=== PATIENT | female | born 1945 | race Caucasian/White ===

== ENCOUNTER 2017-12-26 09:33 | Emergency (ER) ==
[2017-12-26 10:01] VITALS: BP 136/84; TEMP 99.8; BMI 42.2
[2017-12-26] MEDS ORDERED: TORADOL IM STA (10:13)
--- NOTE | 2017-12-26 10:15 | ED.PDOC ---
General ED Provider: Dr. VIKKI PAGAN Chief Complaint: Neck Pain Non-Injury Stated Complaint: Came the neck pain patient was driving and looking back, felf cath in the neck, ever since the pain to turn the neck and lift the head. Time Seen by Physician: 10:13 Mode of Arrival: Walk-In Information Source: Patient Nursing and Triage Documentation Reviewed and Agree: Yes Does patient meet sepsis criteria?: No If yes, has appropriate treatment been initiated?: No System Inflammatory Response Syndrome: Not Applicable Sepsis Protocol: For patient's 13 years and over: Temp is 96.8 and below OR 101 and greater Pulse >90 BPM Resp >20/minute Acutely Altered Mental Status Are patient's symptoms suggestive of a new infection, such as: -Pneumonia -Skin, Soft Tissue -Endocarditis -UTI -Bone, Joint Infection -Implantable Device -Acute Abdominal Infection -Wound Infection -Meningitis -Blood Stream Catheter Infection -Unknown Musculoskeletal Complaint Exam - Neck Pain Complaint/Exam Mechanism of Injury: Reports: No known trauma Symptoms Are: Still present Timing: Constant Episodes Lasting: Hours Initial Severity: Severe Current Severity: Severe Location: Reports: Discrete Character: Reports: Aching Aggravating: Reports: Movement Alleviating: Reports: None Associated Signs and Symptoms: Denies: Swelling, Redness, Bruising, Fever, Nuchal rigidity, Weakness, Headache, Paresthesia Meningitis Risk Factors: Reports: None Cervical Spine Injury Risk Factors: Reports: None Related Surgical History: Reports: None Carotid Bruit Present: No Pain on Passive Flexion: No Positive Kernig's Sign: No ROM Limited In: Present: Flexion, Extension, Right, Left, Side bending, Rotation Tenderness: Present: Paraspinal Focal Weakness: Present: None Focal Sensory Loss: Reports: None Differential Diagnoses: Sprain Review of Systems - Review Of Systems Constitutional: Reports: No symptoms Eyes: Reports: No symptoms Ears, Nose, Mouth, Throat: Reports: No symptoms Respiratory: Reports: No symptoms Cardiac: Reports: No symptoms GI: Reports: No symptoms : Reports: No symptoms Musculoskeletal: Reports: Back pain, Joint pain, Neck pain Skin: Reports: No symptoms Neurological: Reports: No symptoms Endocrine: Reports: No symptoms Hematologic/Lymphatic: Reports: No symptoms All Other Systems: Reviewed and Negative Past Medical History - Past Medical History Previously Healthy: Yes Endocrine: Reports: Dyslipidemia Cardiovascular: Reports: CAD, Hypertension Respiratory: Reports: None Hematological: Reports: None Gastrointestinal: Reports: None Genitourinary: Reports: None Neuro/Psych: Reports: None Musculoskeletal: Reports: None Cancer: Reports: None Last Menstrual Period: unknown - Surgical History General Surgical History: Reports: Hysterectomy, Orthopedic - Family History Family History: Reports: None - Social History Smoking Status: Never smoker Hx Substance Use: No Alcohol Screening: None Physical Exam - Physical Exam Appearance: Well-appearing, No pain distress, Well-nourished Eyes: CÉSAR, EOMI, Conjunctiva clear ENT: Ears normal, Nose normal, Oropharynx normal Respiratory: Airway patent, Breath sounds clear, Breath sounds equal, Respirations nonlabored Cardiovascular: RRR, Pulses normal, No rub, No murmur GI/: Soft, Nontender, No masses, Bowel sounds normal, No Organomegaly Musculoskeletal: Normal strength, ROM intact, No edema, No calf tenderness Skin: Warm, Dry, Normal color Neurological: Sensation intact, Motor intact, Reflexes intact, Cranial nerves intact, Alert, Oriented Psychiatric: Affect appropriate, Mood appropriate Interpretation - Radiology Interpretation Radiology Interpretation By: Radiologist Radiology Results: Negative Exam Interpreted: CT Scan Re-Evaluation - Re-Evaluation Time of Re-Evaluation: 10:45 Status: Improved Critical Care Note - Critical Care Note Total Time (mins): 30 Course - Course Orders, Labs, Meds: Orders Category Date Time Status URIC ACID Stat LAB 12/26/17 10:25 Received Dexamethasone 4 mg/ml Inj [Decadron 4 mg/ml Sdv] MEDS 12/26/17 10:19 Discontinued 4 mg IM ONCE STA Ketorolac Tromethamine [Toradol] MEDS 12/26/17 10:13 Discontinued 60 mg IM ONCE STA CT CERVICAL SPINE W/O CONTRAST Stat RADS 12/26/17 10:13 Completed WRIST, RIGHT 3 VIEWS Stat RADS 12/26/17 10:19 Completed Medications Discontinued Medications Generic Name Dose Route Start Last Admin Trade Name Freq PRN Reason Stop Dose Admin Dexamethasone Sodium Phosphate 4 mg 12/26/17 10:19 12/26/17 10:36 Decadron 4 Mg/Ml Sdv IM 12/26/17 10:20 4 mg ONCE STA Administration Ketorolac Tromethamine 60 mg 12/26/17 10:13 12/26/17 10:34 Toradol IM 12/26/17 10:14 60 mg ONCE STA Administration Vital Signs: Temp Pulse Resp BP Pulse Ox 12/26/17 09:34 99.8 F H 85 20 136/84 95 Departure - Departure Time of Disposition: 10:44 Disposition: HOME SELF-CARE Discharge Problem: Neck sprain Qualifiers: Encounter type: initial encounter Qualified Code(s): S13.9XXA - Sprain of joints and ligaments of unspecified parts of neck, initial encounter Instructions: Cervical Strain (ED) Condition: Stable Pt referred to PMD for follow-up: Yes IPMP verified?: Yes Additional Instructions: Rest Hot pack f/u with [facility] in 3-4 days if not better. Prescriptions: Cyclobenzaprine HCl [Flexeril] 5 mg PO BID #14 tablet Hydrocodone/Acetaminophen [[place] 5-325 Tablet] 1 tab PO TID PRN #10 tablet PRN Reason: PAIN Prednisone 10 mg PO BIDWM #14 tablet Allergies/Adverse Reactions: Allergies No Known Allergies Allergy (Unverified 12/26/17 09:43) Home Medications: Ambulatory Orders Aspirin 325 mg PO DAILY 12/26/17 Atorvastatin Calcium [Lipitor] 20 mg PO DAILY 12/26/17 Celecoxib [Celebrex] 200 mg PO DAILY 12/26/17 Cholecalciferol (Vitamin D3) [Vitamin D3] 5,000 unit PO DAILY 12/26/17 Cyclobenzaprine HCl [Flexeril] 5 mg PO BID #14 tablet 12/26/17 Donepezil HCl [Aricept] 10 mg PO BEDTIME 12/26/17 Dulaglutide [Trulicity] 1.5 mg SQ WEEKLY 12/26/17 Glyburide 5 mg PO BID 12/26/17 Hydrochlorothiazide 25 mg PO BID 12/26/17 Hydrocodone/Acetaminophen [[place] 5-325 Tablet] 1 tab PO TID PRN #10 tablet 12/26 Lamotrigine [Lamotrigine ER] 50 mg PO DAILY 12/26/17 Lamotrigine [Lamotrigine ER] 100 mg PO BEDTIME 12/26/17 Lansoprazole [Prevacid 24Hr] 15 mg PO DAILY 12/26/17 Metoprolol Tartrate [Lopressor] 25 mg PO BID 12/26/17 Nitroglycerin [Nitrostat] 0.4 mg SL Q5MIN X 3 DOSES PRN 12/26/17 Prednisone 10 mg PO BIDWM #14 tablet 12/26/17 Pyridoxine HCl (Vitamin B6) [Vitamin B-6] 100 mg PO DAILY 12/26/17 Topiramate [Topamax] 50 mg PO DAILY 12/26/17 Disposition Discussed With: Patient, Family
[2017-12-26] MEDS ORDERED: DECADRON 4 MG/ML SDV IM STA (10:19)
--- NOTE | 2017-12-26 10:36 | CT ---
Exam: CT of the cervical spine without intravenous contrast. Reason for exam: Neck pain. Comparison: None available. FINDINGS: No acute fracture or listhesis. The vertebral body heights are relatively well maintained. Multilev el degenerative disease is seen throughout the cervical spine with intervertebral body disc space hei ght narrowing and osteophyte formation with ligamentous hypertrophy. Imaging will soft tissues are wi thin normal limits. The dens appears intact. There is mild thickening of the esophageal wall. No pneumothorax is seen in the partially imaged apic es Impression: 1. No acute fracture or listhesis in the cervical spine. 2. Mild multilevel degenerative disease
--- NOTE | 2017-12-26 10:41 | DI ---
Exam: Three-view right wrist. Date: 12/26/2017. Comparison: None. HISTORY: Pain and swelling. FINDINGS: There is soft tissue swelling over the ulna. The mineralization is normal. The bones of the wrist are intact and no visibly displaced fracture is observed. Minor degenerative changes presen t at the first carpometacarpal joint and between the trapezium and scaphoid. Impression: Soft tissue swelling over the ulnar aspect of the wrist but without visible radiopaque f oreign body or fracture. Mild degenerative changes in the radial compartment of the wrist.
== END 2017-12-26 11:04 | disposition home or self-care (01) ==
LOC: ED 09:33
DX: S13.9XXA Sprain of joints and ligaments of unspecified parts of neck, initial encounter (principal); X50.1XXA Overexertion from prolonged static or awkward postures, initial encounter
CPT/HCPCS: 36415; 84550; 96372; 99283